=== PATIENT | female | born 1970 | race Caucasian/White ===

== ENCOUNTER 2016-08-18 13:06 | Outpatient (CLI) | payer BC ==
[2016-08-18 16:19] LABS: Bilirubin Negative (Negative); Blood, Urine Negative (Negative); Glucose, Urine (Dipstick) Negative (Negative); Ketone, Urine Negative (Negative); Nitrite Negative (Negative); Protein, Urine (Dipstick) Trace mg/dL (Neg-Trace); Urobilinogen 0.2 mg/dL (0.2-1.0)
[2016-08-18 16:31] LABS: RBC/HPF None Seen HPF (0-3)
[2016-08-18 16:32] LABS: Bacteria/HPF 2+ HPF (None Seen); Hyaline Casts/LPF NONE SEEN LPF (0-3 Hyaline); Oval Fat Bodies/HPF None Seen HPF (None Seen); Renal Epithelial None Seen HPF (0-3); Sperm/HPF None Seen HPF (None Seen); Transitional Epithelial NONE SEEN HPF (0-3); Trichomonas/HPF None Seen HPF (None Seen); WBC/HPF 0-3 HPF (0-3); Yeast-All Forms None Seen HPF (None Seen)
[2016-08-18 16:35] LABS: ALT (SGPT) 13 U/L (0-55); AST (SGOT) 15 U/L (5-34); Alkaline Phosphatase 70 U/L (40-150); Anion Gap 14 mmol/L (10-20); BUN (Urea Nitrogen) 10 mg/dL (7.0-18.7); Bilirubin, Total 0.5 mg/dL (0.2-1.2); Calc. Creatinine Clearance 0 mL/min (70-130); Calcium 9.8 mg/dL (7.8-10.44); Carbon Dioxide 27 mmol/L (22-29); Chloride 107 mmol/L (98-107); Estimated GFR-MDRD 77; Globulin 3.3 g/dL (2.4-3.5); Protein, Total 7.6 g/dL (6.0-8.3)
[2016-08-18 17:01] LABS: Hemoglobin A1c 5.1 % (4.0-6.0)
[2016-08-18 17:08] LABS: Band 2 % (5-11); Hematocrit 38.3 % (36.0-47.0); Mean Platelet Volume 7.3 fL (7.4-10.4); Neutrophil 67 % (42-75); Stomatocytes SLIGHT = 2-5 cells (100X) (0-1/hpf); White Blood Cell (WBC) Count 7.2 thou/uL (4.8-10.8)
== END 2016-08-18 13:07 | disposition home or self-care (01) ==
LOC: LABLEX 13:06
PROVIDERS: ATTEND Family Medicine
DX: R39.198 Other difficulties with micturition (principal); R07.9 Chest pain, unspecified; R73.09 Other abnormal glucose; H53.9 Unspecified visual disturbance
CPT/HCPCS: 80053; 81001; 83036; 84443; 85025; 87086

== ENCOUNTER 2016-11-05 08:23 | Outpatient (CLI) | payer BC | END 2016-11-05 08:24 | disposition home or self-care (01) | LOC: LABLEX 08:23 | PROVIDERS: ATTEND Family Medicine | DX: N39.0 Urinary tract infection, site not specified (principal) | CPT/HCPCS: 87077; 87086; 87186 ==

== ENCOUNTER 2017-11-18 15:27 | Outpatient (CLI) | payer BC ==
--- NOTE | 2017-11-18 22:02 | RAD ---
CHEST TWO VIEWS: 11/18/17 Comparison is made with a 03/30/12 study. The heart is normal in size and the lungs are clear. No infiltrate or effusion was seen to suggest pn eumonia. The trachea is midline. Mediastinum appears normal. IMPRESSION: No acute thoracic finding. POS: HOME
== END 2017-11-18 15:28 | disposition home or self-care (01) ==
LOC: BURRAD 15:27
PROVIDERS: ATTEND Nurse Practitioner Family
DX: J06.9 Acute upper respiratory infection, unspecified (principal)
CPT/HCPCS: 71046